=== PATIENT | male | born 2000 | race Caucasian/White ===

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

== ENCOUNTER → 2023-04-03 | Outpatient (CLI) | payer MEDICAID, OTHER | LOC: CARD 09:22 | PROVIDERS: ATTEND Family Medicine | DX: Z84.89 Family history of other specified conditions (principal) | CPT/HCPCS: 93005 ==